=== PATIENT | male | born 1955 | race Caucasian/White ===

== ENCOUNTER 2017-05-19 15:04 | Emergency (ER) | payer OTHER ==
[~2017-05-19] VITALS: Ht 182.9 cm; Wt 102.1 kg
[~2017-05-19 15:04] MED LIST: ASPEC81 PO; CLX20 PO; MULT-513 PO; ONDA4TAB7 SL; TNRUNK; TRAM-10 PO
[2017-05-19 15:10] VITALS: TEMP 36.5; Ht 182.9 cm; Wt 102.1 kg
[2017-05-19] MEDS ORDERED: SODIUM CHLORIDE 0.9% 1000ML 1,000 ML IV STA ×2 (15:18→16:51)
[2017-05-19] MEDS ORDERED: MoRPHine SULFATE 4 MG/ML 1 ML CARP\\VIAL IV STA (15:18)
[2017-05-19] MEDS ORDERED: ACETAMINOPHEN 500 MG TAB PO STA (15:18)
[2017-05-19] MEDS ORDERED: IBUPROFEN 600 MG TAB PO STA (15:51)
--- NOTE | 2017-05-19 15:51 | EMERGENCY ROOM VISIT NOTE ---
History First contact with patient: 15:16 Chief Complaint: WOUND INFECTION Stated Complaint: ABSCESS TO RIGHT FOOT History of Present Illness The patient is a 61 year old male who presents to the Emergency Room with complaints of right ankle pain and burning s/p right ankle surgery. The patient had right ankle surgery with Dr. Sin on April 25 for right ankle neuropathy. The patient states he had tendon lengthening and bone shaving surgery performed. The patient was seen by Dr. Sin at follow up last Sunday and was found to have an abscess over the right ankle. Dr. Sin started the patient on Keflex TID and Percocet for the pain. Today the patient states that he has been requiring Percocet more frequently and the pain is unbearable and more burning. He called Dr. 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 The patient denies any fevers, chills, decreased strength, chest pain, shortness of breath, or any other acute complaints. Review of Systems See HPI for pertinent positives and negatives. A total of ten systems were reviewed and were otherwise negative. Social History Smoking Status: Never Smoker Current/Historical Medications Scheduled Aspirin (Aspirin Ec), 81 MG PO DAILY Atenolol (Tenormin), 1 TAB PO DAILY Cephalexin Monohydrate (Keflex), 500 MG PO TID Glimepiride (Amaryl), 4 MG PO DAILY Metformin Hcl (Glucophage), 500 MG PO BID Scheduled PRN Ibuprofen (Motrin), 600 MG PO TID PRN for Headache or Pain Oxycodone/Acetaminophen 5MG/325MG (Percocet 5MG/325MG), 1-2 TABLETS PO Q4H PRN for Pain Promethazine Hcl (Phenergan), 25 MG PO Q6H PRN for Nausea Tramadol (Ultram), 50 MG PO Q8H PRN for Pain Physical Exam Vital Signs Date Time Temp Pulse Resp B/P (MAP) Pulse Ox O2 Delivery O2 Flow Rate FiO2 05/19/17 17:06 114 20 174/107 97 Room Air 05/19/17 15:33 129 05/19/17 15:10 36.5 139 20 138/87 98 Room Air Physical Exam GENERAL: Awake, alert, well-appearing, in no distress HENT: Normocephalic, atraumatic. EYES: Normal conjunctiva. Sclera non-icteric. NECK: Supple. No nuchal rigidity. RESPIRATORY: Clear to auscultation. CARDIAC: Regular rate, normal rhythm. Extremities warm and well perfused. Pulses equal. ABDOMEN: Soft, non-distended. No tenderness to palpation. No rebound or guarding. No masses. RECTAL: Deferred. MUSCULOSKELETAL: Chest examination reveals no tenderness. The back is symmetrical on inspection without obvious abnormality. There is no CVA tenderness to palpation. LOWER EXTREMITIES: Calves are equal size bilaterally and non-tender. Granulation tissue with clear draining at inferior aspect of incision on right ankle. Tenderness with palpation of the incision. Insignificant amount of erythema surrounding the wound. Sutures and wound c/d/i and incision over 1st toe on right foot. Dorsalis pedis pulses 1+, audible with doppler. Sensitive to deep pressure but not light touch over the right foot. Full ROM of the right ankle. Moderate amount of swelling at area of right ankle. NEURO: Normal sensorium. See notes above SKIN: No rash or jaundice noted. See notes above. Medical Decision & Procedures Laboratory Results 05/19/17 15:59 Red Blood Count 3.77, Mean Corpuscular Volume 87.8, Mean Corpuscular Hemoglobin 31.0, Mean Corpuscular Hemoglobin Concent 35.3, Mean Platelet Volume 8.5, Neutrophils (%) (Auto) 81.3, Lymphocytes (%) (Auto) 14.1, Monocytes (%) (Auto) 4.3, Eosinophils (%) (Auto) 0.0, Basophils (%) (Auto) 0.0, Neutrophils # (Auto) 3.01, Lymphocytes # (Auto) 0.52, Monocytes # (Auto) 0.16, Eosinophils # (Auto) 0.00, Basophils # (Auto) 0.00 05/19/17 15:59 Test 05/19/17 15:59 White Blood Count 3.70 K/uL (4.8-10.8) Red Blood Count 3.77 M/uL (4.7-6.1) Hemoglobin 11.7 g/dL (14.0-18.0) Hematocrit 33.1 % (42-52) Mean Corpuscular Volume 87.8 fL (80-100) Mean Corpuscular Hemoglobin 31.0 pg (25-34) Mean Corpuscular Hemoglobin Concent 35.3 g/dl (32-36) Platelet Count 156 K/uL (130-400) Mean Platelet Volume 8.5 fL (7.4-10.4) Neutrophils (%) (Auto) 81.3 % Lymphocytes (%) (Auto) 14.1 % Monocytes (%) (Auto) 4.3 % Eosinophils (%) (Auto) 0.0 % Basophils (%) (Auto) 0.0 % Neutrophils # (Auto) 3.01 K/uL (1.4-6.5) Lymphocytes # (Auto) 0.52 K/uL (1.2-3.4) Monocytes # (Auto) 0.16 K/uL (0.11-0.59) Eosinophils # (Auto) 0.00 K/uL (0-0.5) Basophils # (Auto) 0.00 K/uL (0-0.2) RDW Standard Deviation 42.3 fL (36.4-46.3) RDW Coefficient of Variation 13.2 % (11.5-14.5) Immature Granulocyte % (Auto) 0.3 % Immature Granulocyte # (Auto) 0.01 K/uL (0.00-0.02) Erythrocyte Sedimentation Rate 25 mm/hr (0-14) Anion Gap 6.0 mmol/L (3-11) Est Creatinine Clear Calc Drug Dose 78.9 ml/min Estimated GFR () 74.7 Estimated GFR (Non- 64.4 BUN/Creatinine Ratio 17.9 (10-20) Lactic Acid Level 1.0 mmol/L (0.4-2.0) Calcium Level 9.0 mg/dl (8.5-10.1) C-Reactive Protein 0.51 mg/dl (0-0.29) Medications Administered Medications (Trade) Dose Ordered Sig/Whitney Route Start Time Stop Time Status Last Admin Dose Admin Sodium Chloride 1,000 ml @ 999 mls/hr Q1H1M STAT IV 05/19/17 15:18 05/19/17 16:18 DC 05/19/17 16:27 999 MLS/HR Morphine Sulfate (MoRPHine SULFATE INJ) 4 mg NOW STAT IV 05/19/17 15:18 05/19/17 15:21 DC 05/19/17 16:26 4 MG Acetaminophen (Tylenol Tab) 1,000 mg NOW STAT PO 05/19/17 15:18 05/19/17 15:21 DC 05/19/17 16:24 1,000 MG Ibuprofen (Motrin Tab) 600 mg NOW STAT PO 05/19/17 15:51 05/19/17 15:53 DC 05/19/17 16:25 600 MG ED Course Patient is a 61 year old male that presents with worsening burning and pain over the surgical site of the right ankle 1520: Patient assessed at bedside with right ankle wound draining clear fluid - Ordered imaging including right ankle X-ray, tib-fib X-ray, Chest X-ray - Medications ordered: Morphine, Tylenol, Motrin - Labs: CBC, BMP, ESR, CRP, Lactatic Acid - EKG at Bedside: Tachycardia with no acute ST changes or T wave inversions 1650: Re-evaluated patient - States pain medication has worn off but earlier discomfort had improved 170: Ordered Dilaudid 0.5mg - Ordered 1L NS 1740: Spoke with Dr. Sin over the phone - Stated the patient should follow up at their scheduled appointment on Sunday and to continue pain medication in addition to Keflex. He also stated the patient should elevate and stay off of the left foot/ankle. Medical Decision Patient is a 61 year old male that presents with worsening burning and pain over the surgical site of the right ankle Etiologies such cellulitis, abscess, necrotizing fascitis, osteomyelitis, diabetic neuropathy as well as others were entertained. Patient was initially evaluated in the ED and found to have some clear drainage from the surgical site on his right ankle that was very tender to touch. There does not appear to be cellulitis of the surgical site on examination, The patient was started on Morphine IV, Tylenol, and 1L NS. The patient on re- evaluation states his right ankle pain has improved but that the morphine was wearing off. Imaging of the right ankle was not suggestive for any underlying osteomyelitis or gas underneath the surgical site concerning for severe skin infection. Discussed the case with Dr. Sin and concluded that the patient had presented for worsening pain in the right ankle in addition to continued drainage from the wound. Dr. Sin agreed to continue Keflex 500mg QID in addition to pain medications. He also relayed to have the patient elevate and stay off of the limb until their scheduled appointment next Sunday. Impression Primary Impression: Post-operative pain Additional Impression: Neuropathy Departure Information Dispostion Home / Self-Care Condition GOOD Prescriptions Cephalexin Monohydrate (Keflex) 500 Mg Cap 1 CAP PO QID for 4 Days, #16 CAP Prov: Jerald Feldman MD 05/19/17 Referrals No Doctor, Assigned (PCP) Arsenio Sin D.O. Patient Instructions [facility] Additional Instructions WOUND CARE INSTRUCTIONS: Bacitracin to wounds once daily. Use a non-stick dressing such as a large band-aid. Change the dressings once a day. Tylenol 1000mg every 6 hours for as needed for pain. Roxicodone 5mg 1-2 tabs every 6 hours by mouth for pain Motrin 600mg by mouth every 6 hours for pain Make sure to elevate the limb and stay off of it as much as possible until your follow up with Dr. Sin Allow your wounds to air dry several hours per day when you are resting, but it is a good idea to keep them covered while sleeping to prevent irritation and the sheets sticking to the wound. Apply direct pressure for any bleeding. Return to the ER immediately for spreading redness, fevers, pus-like drainage, severe pain, or as needed. Follow-up with your primary care physician in 2 to 3 days for a recheck of your current condition. Follow-up with Dr. Sin at scheduled follow up appointment next Sunday Problem Qualifiers
[2017-05-19] MEDS ORDERED: ASPI81TA28 PO (15:52)
[2017-05-19] MEDS ORDERED: GLC/500 PO (15:52)
[2017-05-19] MEDS ORDERED: ATEN-173 PO (15:52)
[2017-05-19] MEDS ORDERED: PROM25TA9 PO (15:52)
[2017-05-19] MEDS ORDERED: IBUP-1450 PO (15:52)
[2017-05-19] MEDS ORDERED: OXYC-57 PO (15:52)
[2017-05-19] MEDS ORDERED: CEPH500C PO ×2 (15:52→18:15)
[2017-05-19] MEDS ORDERED: TRAM-10 PO (15:52)
[2017-05-19] MEDS ORDERED: GLIM4TAB PO (15:52)
[2017-05-19 16:21] LABS: COMPLETE YES; HEMATOCRIT 33.1 % (42-52); IG% 0.3 %; LYMPH % 14.1 %; LYMPH ABS # 0.52 K/uL (1.2-3.4); MEAN CELL VOLUME 87.8 fL (80-100); MEAN CORPUSCULAR HGB CONC 35.3 g/dl (32-36); MEAN PLATELET VOLUME 8.5 fL (7.4-10.4); MONO % 4.3 %; NEUT % 81.3 %; PLATELET COUNT 156 K/uL (130-400); RED BLOOD COUNT 3.77 M/uL (4.7-6.1)
[2017-05-19 16:34] LABS: BUN/CREATININE RATIO 17.9 (10-20); C-REACTIVE PROTEIN 0.51 mg/dl (0-0.29); CREATININE 1.2 mg/dl (0.60-1.40); POTASSIUM 4.5 mmol/L (3.5-5.1)
--- NOTE | 2017-05-19 16:37 | DIAGNOSTIC IMAGING REPORT ---
CHEST ONE VIEW PORTABLE CLINICAL HISTORY: 61 years-old Male presenting with tachycardia. TECHNIQUE: Portable upright AP view of the chest was obtained. COMPARISON: 04/23/2009. FINDINGS: Mildly tortuous descending thoracic aorta. Cardiac silhouette normal. Mildly low lung volumes. Lungs and pleural spaces clear. Left shoulder arthroplasty. Upper abdomen normal. IMPRESSION: 1. Mildly low lung volumes. No convincing evidence of acute cardiopulmonary disease. Electronically signed by: Dayton Erazo M.D. 05/19/2017 4:36 PM Dictated Date/Time: 05/19/2017 4:33 PM
--- NOTE | 2017-05-19 16:56 | DIAGNOSTIC IMAGING REPORT ---
R TIBIA/FIBULA 2 VIEWS ROUTINE CLINICAL HISTORY: 61 years-old Male presenting with RLE wound. TECHNIQUE: Frontal and lateral views of the right lower leg were obtained. COMPARISON: None. FINDINGS: The site of the right lower extremity wound is not immediately apparent. Soft tissue swelling noted along the lateral malleolus. Total right knee arthroplasty. Minimal space subjacent to the anterior aspect of the tibial component, which is likely within the range of acceptable. No osseous erosion or periosteal reaction. No acute fracture or malalignment. Atherosclerosis. IMPRESSION: No acute osseous injury. No radiographic evidence of osteomyelitis. Electronically signed by: Dayton Erazo M.D. 05/19/2017 4:54 PM Dictated Date/Time: 05/19/2017 4:53 PM
--- NOTE | 2017-05-19 16:58 | DIAGNOSTIC IMAGING REPORT ---
R FOOT MIN 3 VIEWS ROUTINE CLINICAL HISTORY: 61 years-old Male presenting with h/o R foot abscess, erythema, callor, pain. TECHNIQUE: Frontal, oblique, and lateral views of the right foot were obtained. COMPARISON: None. FINDINGS: The site of the reported abscess is not immediately apparent. Lag screw fixation across the interphalangeal joint of the first toe. Partial osseous fusion. No osseous erosion or periosteal reaction. No acute fracture or malalignment. Osteopenia suggested. Prominent bone spur at the inferior calcaneus. Atherosclerosis. Extensive soft tissue edema diffusely in the foot and ankle. IMPRESSION: Postsurgical changes of first interphalangeal joint arthrodesis. No acute osseous injury. No radiographic evidence of osteomyelitis. Electronically signed by: Dayton Erazo M.D. 05/19/2017 4:57 PM Dictated Date/Time: 05/19/2017 4:54 PM
[2017-05-19] MEDS ORDERED: HYDROmorphone INJ 0.5 MG/0.5 ML SYR IV STA ×2 (17:01→18:21)
--- NOTE | 2017-05-19 17:13 | EMERGENCY ROOM VISIT NOTE ---
ED Visit Note First contact with patient: 15:16 Resident Physician Supervision Note: I interviewed and examined the patient. Discussed with Dr. Feldman and agree with findings and plan as documented in the note. Any exceptions or clarifications are listed here: Patient was seen and examined also by myself in addition to the resident. Patient was fairly well-appearing. Patient had no fevers or chills. Patient no other infectious symptoms. Patient did have a recent questionable small pustule was opened the patient was started on Keflex. Patient did have blood work as well as x-rays that were completed. No acute signs of osteo-myelitis. Patient is not septic. Patient's heart rate improved pain control as well as IV fluids. The resident also spoke with Dr. Coy's primary surgeon given his recent right ankle surgery. Position also agreed with plan of care. Patient did have tachycardia with recent surgery however the patient denied any chest pain or shortness of breath and tachycardia resolved w/ pain control and IVF, thus less likely PE. Patient was given strict follow-up, discharge, return precautions patient agreed with plan of care and patient was discharged home. Documented By: Malcolm Hinton
[2017-05-19 18:27] VITALS: BP 155/105; PULSE 82; O2SAT 99
== END 2017-05-19 18:37 | disposition home or self-care (01) ==
LOC: C.EDB 15:05 → C.EDC 18:37
DX: G89.18 Other acute postprocedural pain (principal); G62.9 Polyneuropathy, unspecified; Z79.82 Long term (current) use of aspirin